=== PATIENT | male | born 1930 | race Caucasian/White ===

== ENCOUNTER 2016-09-17 20:57 | Emergency (ER) | payer MEDICARE, BC ==
--- NOTE | ~2016-09-17 | CT101 ---
[facility] A Service of [facility] RADIOLOGY TEXT RESULTS PATIENT: LUDWIG GARZON LOCATION: SED : 30 UNIT #: [id number] AGE: [address]: Catalina Keen APRN SEX: M ORDER DR: [id number] [address] [address] [id number] E MR#: [id number] Acc #: [id number] NAME: LUDWIG GARZON : 1930 SEX: M STUDY DATE/TIME: 09/17/2016 21:31 UNIT: SED ROOM: STUDY DESCRIPTION: CT Maxillofacial Area Wo Cont Attending Physician: Catalina Keen A.P.R.N. Ordering Physician: Catalina Keen A.P.R.N. Primary Care Physician: No Primary Care Physician MEDICAL IMAGING REPORT This report is preliminary unless electronic signature is present. EXAM Max face CT INDICATIONS Fall. Head laceration. Left orbital pain. Tripped on a rug. TECHNIQUE Maxillofacial CT without contrast. Coronal reconstructions were obtained. This CT exam was performed with one or more of the following radiation dose reduction techniques: automatic control, adjustment of mA and/or kV according to patient size, and iterative reconstruction. COMPARISON None available. FINDINGS There is a soft tissue laceration and small scalp hematoma over the left frontal convexity and left orbit. The left globe is normal in appearance. No post septal hematoma. No facial fractures. There is mucosal thickening within the left frontal sinus, anterior left ethmoid air cells, and the left maxillary sinus. There is poor dentition with multiple dental caries. IMPRESSION 1. Soft tissue laceration and small scalp hematoma overlying the left frontal convexity and left orbit. 2. No underlying fracture. The left globe is within normal limits. Dictated by... Blaine Sorenson M.D. [facility] A Service [facility] RADIOLOGY TEXT RESULTS PATIENT: LUDWIG GARZON LOCATION: SED : 30 UNIT #: [id number] AGE: [address]: Catalina Keen APRN SEX: M ORDER DR: THIS IS AN ELECTRONICALLY VERIFIED REPORT Blaine Sorenson M.D. at 09/18/2016 11:15 PM ROSANA/tashia TD: 09/18/2016 02:01 JOB #: [id number] MEDICAL IMAGING REPORT Page 1 of 1
--- NOTE | ~2016-09-17 | CR181 ---
[facility]. [facility] A Service of [facility] RADIOLOGY TEXT RESULTS PATIENT: LUDWIG GARZON LOCATION: SED : 30 UNIT #: [id number] AGE: [address]: Catalina Keen APRN SEX: M ORDER DR: [id number] [place] [id number] E MR#: [id number] Acc #: [id number] NAME: LUDWIG GARZON : 1930 SEX: M STUDY DATE/TIME: 09/17/2016 22:04 UNIT: SED ROOM: STUDY DESCRIPTION: CR Lumbar Spine 2 or 3 Views Attending Physician: Catalina Keen A.P.R.N. Ordering Physician: Catalina Keen A.P.R.N. Primary Care Physician: No Primary Care Physician MEDICAL IMAGING REPORT This report is preliminary unless electronic signature is present. EXAM Lumbar spine 3 views HISTORY Chronic back pain worse after tripping over rug at home today. FINDINGS AP lateral and cone lateral views of the lumbar spine demonstrates advanced multilevel degenerative disc disease lumbar spine with mild dextrocurvature. Degenerative disc changes most pronounced L3-4, L4-5 but involve all lumbar levels. No definite fracture. No spondylolysis or spondylolisthesis. Extensive aortic vascular calcifications noted. Visualized sacrum and SI joints unremarkable. IMPRESSION Advanced multilevel degenerative disc disease and multilevel facet arthropathy lumbar spine. No definite acute abnormality. Dictated by... Carly Polanco M.D. THIS IS AN ELECTRONICALLY VERIFIED REPORT Carly Polanco M.D. at 09/20/2016 6:07 AM ORLANDO/tashia TD: 09/18/2016 03:21 JOB #: [id number] MEDICAL IMAGING REPORT Page 1 of 1
--- NOTE | ~2016-09-17 | CR63 ---
[facility]. [facility] A Service of [facility] RADIOLOGY TEXT RESULTS PATIENT: LUDWIG GARZON LOCATION: SED : 30 UNIT #: [id number] AGE: [address]: Catalina Keen APRN SEX: M ORDER DR: [id number] [place] [id number] E MR#: [id number] Acc #: [id number] NAME: LUDWIG GARZON : 1930 SEX: M STUDY DATE/TIME: 09/17/2016 22:04 UNIT: SED ROOM: STUDY DESCRIPTION: CR Chest 2 View Attending Physician: Catalina Keen A.P.R.N. Ordering Physician: Catalina Keen A.P.R.N. Primary Care Physician: No Primary Care Physician MEDICAL IMAGING REPORT This report is preliminary unless electronic signature is present. EXAM 2-view chest HISTORY 86-year-old male status post fall today, tripped over rug at home hit head on couch complains of chest tightness. FINDINGS 2 views of the chest demonstrates cardiomegaly with prominence of the pulmonary vascular and interstitium with Francis B lines and bilateral pleural effusions. Findings suggestive of underlying CHF. Patient is post median sternotomy and apparent CABG. Osseous structures unremarkable. IMPRESSION Bilateral pleural effusions. Cardiomegaly and prominence of the pulmonary interstitium and vascularity may reflect underlying CHF, possibly chronic in nature. Patient is post CABG. Dictated by... Carly Polanco M.D. THIS IS AN ELECTRONICALLY VERIFIED REPORT Carly Polanco M.D. at 09/20/2016 6:07 AM ORLANDO/tashia TD: 09/18/2016 03:08 JOB #: [id number] MEDICAL IMAGING REPORT Page 1 of 1
--- NOTE | ~2016-09-17 | CT71 ---
[facility] A Service [facility] RADIOLOGY TEXT RESULTS PATIENT: LUDWIG GARZON LOCATION: SED : 30 UNIT #: [id number] AGE: [address]: Catalina Keen APRN SEX: M ORDER DR: [id number] [place] [id number] E MR#: [id number] Acc #: [id number] NAME: LUDWIG GARZON : 1930 SEX: M STUDY DATE/TIME: 09/17/2016 21:31 UNIT: SED ROOM: STUDY DESCRIPTION: CT Head Wo Contrast Attending Physician: Catalina Keen A.P.R.N. Ordering Physician: Catalina Keen A.P.R.N. Primary Care Physician: No Primary Care Physician MEDICAL IMAGING REPORT This report is preliminary unless electronic signature is present. EXAM CT head INDICATIONS Fall. Head laceration. Tripped over a rug at home. TECHNIQUE CT of the head without contrast. This CT exam was performed with one or more of the following radiation dose reduction techniques: automatic control, adjustment of mA and/or kV according to patient size, and iterative reconstruction. COMPARISON None available. FINDINGS There is no acute intracranial hemorrhage, mass lesion, or acute infarct. There is generalized global cerebral atrophy and chronic small vessel changes. The ventricles are mildly prominent, however this is felt to be commiserate with the degree of volume loss. No extraaxial collection. No acute osseous abnormalities. There is some mucosal thickening in the left frontal sinus and anterior left ethmoidal air cells. There is a laceration over the left eye. Please correlate with a maxillofacial CT for details. IMPRESSION 1. No acute intracranial findings. 2. Soft tissue laceration over the left orbit. Please refer to the maxillofacial CT report for details. 3. Atrophy and chronic small vessel changes [facility] A Service [facility] RADIOLOGY TEXT RESULTS PATIENT: LUDWIG GARZON LOCATION: SED : 30 UNIT #: [id number] AGE: [address]: Catalina Keen APRN SEX: M ORDER DR: Dictated by... Blaine Sorenson M.D. THIS IS AN ELECTRONICALLY VERIFIED REPORT Blaine Sorenson M.D. at 09/18/2016 11:15 PM RPC/rnr TD: 09/18/2016 01:57 JOB #: [id number] MEDICAL IMAGING REPORT Page 1 of 1
--- NOTE | ~2016-09-17 | CT52 ---
[facility] A Service of [facility] & [facility] RADIOLOGY TEXT RESULTS PATIENT: LUDWIG GARZON LOCATION: SED : 30 UNIT #: [id number] AGE: [address]: Catalina Keen APRN SEX: M ORDER DR: [id number] [address] [address] [id number] E MR#: [id number] Acc #: [id number] NAME: LUDWIG GARZON : 1930 SEX: M STUDY DATE/TIME: 09/17/2016 22:01 UNIT: SED ROOM: STUDY DESCRIPTION: CT Cervical Spine Wo Cont Attending Physician: Catalina Keen A.P.R.N. Ordering Physician: Catalina Keen A.P.R.N. Primary Care Physician: No Primary Care Physician MEDICAL IMAGING REPORT This report is preliminary unless electronic signature is present. EXAM CT cervical spine without contrast HISTORY 86-year-old male status post fall with head laceration, tripped over rug at home. Hit head on couch. TECHNIQUE This CT exam was performed with one or more of the following radiation dose reduction techniques: automatic control, adjustment of mA and/or kV according to patient size, and iterative reconstruction. FINDINGS Thin section axial images performed through the cervical spine with multiplanar reconstructed images reviewed at a workstation. Examination demonstrates no fracture or malalignment. Multilevel degenerative disc disease with disc space narrowing C3-4, C4-5, C5-6 and C6-7. Mild anterolisthesis C3 on C4 and C4 on C5. Mild multilevel facet arthropathy. Multilevel spinal and foraminal stenosis due to a combination of degenerative disc disease and facet arthropathy. This is most pronounced C5-6 and C6-7. Extensive atherosclerotic changes are noted within the carotid bifurcations, right greater than left. Moderate sized bilateral pleural effusions with evidence of probable underlying interstitial disease and fibrosis. IMPRESSION 1. No acute cervical spine abnormality identified. Moderately advanced multilevel degenerative disc disease and multilevel facet arthropathy. 2. 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 Moderately advanced arthritic changes are seen at the atlantoaxial joint. 3. Incidentally noted are moderate sized bilateral pleural effusions [facility]. [facility] A Service of [facility] & [facility] RADIOLOGY TEXT RESULTS PATIENT: LUDWIG GARZON LOCATION: SED : 30 UNIT #: [id number] AGE: [address]: Catalina Keen [employer] SEX: M ORDER DR: with interstitial prominence could reflect interstitial edema and CHF. Correlate with clinical exam. Dictated by... Carly Polanco M.D. THIS IS AN ELECTRONICALLY VERIFIED REPORT Carly Polanco M.D. at 09/20/2016 6:07 AM ORLANDO/tashia TD: 09/18/2016 02:13 JOB #: [id number] MEDICAL IMAGING REPORT Page 1 of 1
[2016-09-17] MEDS ORDERED: ZOCOR PO (21:12)
[2016-09-17] MEDS ORDERED: ATENOLOL PO (21:13)
[2016-09-17] MEDS ORDERED: PRILOSEC PO (21:13)
[2016-09-17] MEDS ORDERED: PLAVIX PO (21:13)
[2016-09-17] MEDS ORDERED: NITROSTAT0.4 MG (21:13)
[2016-09-17] MEDS ORDERED: AZOR 5-40 MG T1 EACH (21:13)
[2016-09-17] MEDS ORDERED: ASPIRIN81 MG (21:13)
[2016-09-17] MEDS ORDERED: HYTRIN PO (21:13)
[2016-09-17 21:52] LABS: URINE SOURCE CLEAN CATCH
[2016-09-17 21:54] LABS: URINE APPEARANCE CLEAR; URINE BILIRUBIN NEG (NEG); URINE BLOOD NEG (NEG); URINE COLOR YELLOW; URINE GLUCOSE NEG (NORM); URINE KETONE TRACE (NEG); URINE LEUKOCYTE ESTERASE NEG (NEG); URINE NITRATE NEG (NEG); URINE PH 5.5 (5-8); URINE PROTEIN 2+ (NEG)
[2016-09-17 21:56] LABS: BASOPHIL% 0.4 % (0-2.5); EOSINOPHIL# 0.2 X10e3 (0-0.7); EOSINOPHIL% 3.7 % (0.0-7.0); HEMATOCRIT 30.9 % (38.0-50.0); HEMOGLOBIN 10.4 gm/dL (13.0-16.0); LYMPHOCYTE# 1.1 X10e3 (1.0-3.5); LYMPHOCYTE% 23.6 % (17.0-45.0); MEAN CELL VOLUME 84.5 FL (83-96); MEAN CORPUSCULAR HEMOGLOBIN 28.4 PG (28-34); MEAN CORPUSCULAR HGB CONC 33.6 g/dL (30-36); MONOCYTE# 0.4 X10e3 (0-1.0); MONOCYTE% 7.8 % (3.0-12.0); NEUTROPHIL# 3.1 X10e3 (1.5-7.1); NEUTROPHIL% 64.5 % (40-75); PLATELET COUNT 163 X10e3 (140-420); RED BLOOD COUNT 3.65 X10e (3.90-5.60); RED CELL DISTRIBUTION WIDTH 15.1 % (11.0-15.5); WHITE BLOOD COUNT 4.8 X10e3 (4.0-10.5)
[2016-09-17 21:57] LABS: DIFF IND NO
[2016-09-17 22:02] LABS: CULTURE INDICATED? NO; MICRO INDICATED? YES; URINE BACTERIA NEG (NEG); URINE RBC 0-2 /[HPF] (0-2); URINE SQUAMOUS EPITHELIAL CELL OCCAS /[HPF]
[2016-09-17 22:03] LABS: URINE HYALINE CAST 0-2 /[HPF]; URINE MUCUS PRESENT
[2016-09-17 22:04] LABS: INR 1.3; PROTHROMBIN TIME (PATIENT) 14.6 SECONDS (9.5-12.4)
[2016-09-17 22:06] LABS: POC - CKMB <1.0 ng/mL (0.0-7.9); POC - TROPONIN <0.05 ng/mL (<=0.05)
[2016-09-17 22:11] LABS: ALBUMIN SERUM 3.7 g/dL (3.5-5.0); BILIRUBIN,TOTAL 0.4 mg/dL (0.2-2.0); BUN/CREATININE RATIO 14.21; CALCIUM SERUM 8.5 mg/dL (8.4-10.2); CREATININE SERUM 1.9 mg/dL (0.6-1.4); GLOM FILT RATE Estimated 31.2 mL/min (>60); PARTIAL THROMBOPLASTIN TIME 26.5 SECONDS (25.6-38.1); POTASSIUM 3.8 mmol/L (3.5-5.1); PROTEIN TOTAL SERUM 6.4 g/dL (6.0-8.3)
== END 2016-09-18 01:59 ==
LOC: SED 20:57
PROVIDERS: Nurse Practitioner Family
DX: S09.90XA Unspecified injury of head, initial encounter (principal); I25.2 Old myocardial infarction; Z88.1 Allergy status to other antibiotic agents; Z79.01 Long term (current) use of anticoagulants; W01.0XXA Fall on same level from slipping, tripping and stumbling without subsequent striking against object, initial encounter; Y92.830 Public park as the place of occurrence of the external cause
CPT/HCPCS: 36415; 70450; 70486; 71020; 72100; 72125; 80053; 81003; 82553; 83880; 84484; 85025; 85610; 85730; 96374; 99285; J1940

== ENCOUNTER 2016-11-30 18:54 | Inpatient (IN) | payer MEDICARE, BC ==
[~2016-11-30] VITALS: Ht 167.6 cm; Wt 69.0 kg
--- NOTE | ~2016-11-30 | CO ---
Unit #: [id number] #: [id number] Patient: LUDWIG GARZON [id number] [facility]. [place] [id number] [facility]. [place], [place] [address] [id number] I MR#: [id number] NAME: LUDWIG GARZON ROOM: 306 Age: 86 Sex: M Admission Date: 11/30/2016 : 1930 Attending Physician: Janis Messer M.D. Primary Care Physician: No Primary Care Physician Consultation Date: 12/01/2016 CONSULTATION REPORT REASON FOR CONSULTATION Cardiac management and cardiac clearance for surgery. HISTORY OF PRESENT ILLNESS This is an 86-year-old white male with history of coronary artery disease, had a previous CABG in 1997 and over 10 years ago had some type of angioplasty stent to according to the patient occluded graft. Details are unavailable. Also patient has a history of having appearance of valvular heart disease and aortic stenosis and congestive heart failure. He was just in [facility] under the care of Dr. Hdez early September of this year with congestive heart failure. Patient does not believe he has had any recent stress test but has had a recent echo. Patient has hypertension, hyperlipidemia. He has degenerative disease, chronic back pain. According to patient, he was walking across the room and he just his lost his balance and fell over toward his right side. He had a laceration on upper part of his right ear and he hurt his right hip. He couldn't get up from the floor. He lives with his . They called EMS who came to his home, transported him to the hospital for further evaluation and management. After x-rays he was found to have a right intertrochanteric fracture. CT of his maxillofacial and CT of the head did not show anything acute. CT of his head did show some extensive carotid calcification. Chest x-ray show cardiomegaly and COPD. His EKG shows sinus rhythm. Some nonspecific ST-T wave abnormalities. On interview with the patient he denies having chest pain, pain in his neck, bilateral jaw, shoulders, arms or elbow except for musculoskeletal pain from the fall. He denies any palpitations. He denies any dizziness, presyncope or syncope that precipitated the fall. He denies any increased lower extremity edema, recent increased lower extremity edema. Patient also states he used to see a kidney doctor but has not in some time and he does not know if his kidneys were an issue when he was in the hospital a couple of months ago. On admission his BUN was 25, creatinine 2.0. His creatinine was 2.0. His hemoglobin is 9.6, hematocrit 20.2. He said he used to take iron tablets, has not in some time. Cardiology has been asked to assist with evaluation, managed and cleared for surgery for repair of his hip fracture. PAST MEDICAL HISTORY 1. History of coronary artery disease, to vessel coronary artery bypass graft in 1993, his last cardiac cath was in 2011 showing an occluded saphenous vein graft to the RCA and moderate stenosis of the saphenous vein graft to the diagonal branch of the LAD and a patent RUIZ to the LAD. 2. He has a history of moderate aortic stenosis. He follows Dr. Hdez. His last 2D echo 08/[address] Hdez showed EF of 36% Unit #: [id number] #: [id number] Patient: LUDWIG GARZON to 40%. Left ventricular systolic function is moderately decreased with LVH, grade 3 diastolic dysfunction, moderate mitral valve regurgitation, and moderate aortic valve stenosis. 3. History of systolic congestive heart failure. 4. Hypertension. 5. Hyperlipidemia. 6. Gastroesophageal reflux disease. 7. Chronic kidney disease. 8. Benign prostatic hypertrophy. 9. Peripheral vascular disease, status post left carotid endarterectomy. 10. Chronic back pain, has degenerative disease. 11. History of anemia. 12. Reformed smoker. PAST SURGICAL HISTORY 1. Left carotid endarterectomy. 2. 1993 two vessel coronary artery bypass graft. 3. Cholecystectomy. HOME MEDICATIONS 1. Zocor 40 mg p.o. at h.s. 2. Prilosec 20 mg p.o. daily. 3. Hytrin 10 mg p.o. daily at h.s. 4. Plavix 75 mg p.o. daily. 5. Nitrostat 0.4 mg sublingual p.r.n. for chest pain. 6. Atenolol 50 mg p.o. daily. 7. Analgesic balm topically 3 times daily p.r.n. for pain. 8. Isosorbide mononitrate 120 mg p.o. daily. 9. Amlodipine 10 mg p.o. daily, that's a half a tablet which will be 5 mg. ALLERGIES Cephalexin. SOCIAL HISTORY The patient lives with his spouse. He sometimes has an unsteady gait due to his back pain. He refuses up to now to use a walker or cane. He quit smoking 50 years ago. No alcohol or illicit drug abuse. FAMILY HISTORY He had a daughter that at the age of 59 from some type of sudden illness. They are not sure if she has had an KS, autopsy is pending. He also had an older sister that had an KS. REVIEW OF SYSTEMS See details in HPI. PHYSICAL EXAMINATION GENERAL: Mr. Garzon is an 86-year-old white male in no acute respiratory distress. He is awake, alert and oriented. VITAL SIGNS: Blood pressure is 150/60, heart rate is 66, respirations 18, temperature 98.7, O2 sats 96% on room air. NECK: Trachea midline. No thyromegaly or lymphadenopathy. Normal bilateral carotid bruits greater in the right. LUNGS: Very diminished, otherwise clear. ABDOMEN: Soft, nontender. Positive bowel sounds present. No hepatosplenomegaly. EXTREMITIES: Pedal pulses are palpable. No pedal edema. Unit #: [id number] #: [id number] Patient: LUDWIG GARZON DIAGNOSTIC STUDIES LABORATORY DIAGNOSTIC DATA: Glucose is 125, BUN 25, creatinine 2.0. EGFR is 29.4. Sodium 141, potassium 4.5, chloride 108, CO2 27, calcium 3.4, total protein 6.5, albumin 3.7, bili total 0.5, AST 21, ALT 13, alk phos is 51. WBC is 8.1, hemoglobin 9.6, hematocrit 28.2, and platelets is 160. INR is 1.1. IMAGING STUDIES: Chest x-ray shows cardiomegaly and COPD, otherwise no active pulmonary disease. CT of the head, CT of the cervical spine, and CT of the maxillofacial area reveals no fractures but did note extensive carotid arterial calcification with prominent calcifications of the bilateral carotid bifurcations. X-ray of right hip shows comminuted intertrochanteric fracture of the right hip. CARDIOLOGY STUDIES: EKG shows normal sinus rhythm, left ventricular hypertrophy. Q waves in inferior leads, also in V1, poor R wave progression. IMPRESSION 1. Status post fall right intertrochanteric fracture. 2. Moderate aortic stenosis. LVEF of 35% to 40%. 3. Angina pectoris stable. 4. Chronic kidney disease and acute on chronic kidney disease. 5. History of coronary artery disease, two vessel CABG in 1993, last cardiac catheterization was 2011, which showed an occluded saphenous vein graft to the RCA, moderate stenosis of the saphenous vein graft to the diagonal branch of the LAD and a patent RUIZ to the LAD. 6. History of chronic systolic congestive heart failure. 7. Hypertension. 8. Hyperlipidemia. 9. Gastroesophageal reflux disease. 10. Benign prostatic hypertrophy. 11. Peripheral vascular disease. 12. Carotid stenosis. 13. History of left carotid endarterectomy. 14. Chronic back pain. 15. History of anemia. 16. Reformed smoker. PLAN 1. Cardiology consulted to evaluate the patient and clear for surgery, to have his hip fracture repair. On exam, today there is no signs or symptoms of angina or acute congestive heart failure. However, the patient does have occasional what appears to be angina symptoms and he takes a sublingual nitroglycerin, then it eases off. Did obtain records from Dr. Hdez, his laundry housekeeper at [facility] and he did make notation of his blockages in his coronary arteries and patient wanted conservative medical management at that time. Dr. Hdez has continued to monitor his aortic stenosis. 2. Patient will continue on his beta-calvin perioperatively but will change the atenolol to metoprolol 25 mg p.o. twice daily. 3. Last dose of his Plavix was on 11/30/2016 in the morning. 4. Continue his amlodipine for blood pressure management, besides his beta-calvin. Also continue patient on his nitrate. Patient has IV Unit #: [id number] #: [id number] Patient: LUDWIG GARZON delfino for his acute on chronic kidney disease. He got D5 1/2 at 70 mL an hour. 5. After Dr. Eng reviewed patient's records and after examination feels it is permissible for the patient to undergo surgery at a moderate acceptable risk. Dr. Eng had a long discussion with the patient and his daughter and discussed these risks. The patient verbalizes understanding and wants to proceed with hip surgery. 6. Further recommendations pending per Dr. Eng. 7. Has SCDs for now. Thank you very much for allowing us to assist in his care. Dictated by... Lucy E. Ndiaye, A.P.Alissa Mariscal/ts TD: 12/02/2016 06:49 JOB #: [id number] CC: [facility] [place] Hdez M.D. CONSULTATION REPORT Page 1 of 1 X Lucy Ndiaye APRN CONSULTATION REPORT
--- NOTE | ~2016-11-30 | EKG ---
PATIENT: LUDWIG GARZON UNIT #: [id number] Ventricular Rate: 68 BPM Atrial Rate: 70 BPM QRS Duration: 104 ms Q-T Interval: 416 ms QTC Calculation(Bezet): 442 ms Calculated R [place]: 55 degrees Calculated T [place]: -29 degrees Diagnosis Line: Normal sinus rhythm Diagnosis Line: Left ventricular hypertrophy with repolarization Diagnosis Line: abnormality Diagnosis Line: Abnormal ECG Diagnosis Line: No previous ECGs available Diagnosis Line: Confirmed by FRANCES RAMIREZ MD ([id number]) on 12/01/2016 Diagnosis Line: 7:39:45 PM INTERPRETING MD: ASHLEY HYDE
--- NOTE | ~2016-11-30 | CT52 ---
[facility] A Service of [facility] RADIOLOGY TEXT RESULTS PATIENT: LUDWIG GARZON LOCATION: [facility] 449-01 : 30 UNIT #: [id number] AGE: [address]: Janis Messer MD SEX: M ORDER DR: [id number] [facility] [address] [place], [place] [address] [id number] MR#: [id number] #: [id number] NAME: LUDWIG GARZON : 1930 SEX: M STUDY DATE/TIME: 11/30/2016 21:18 UNIT: CEDOF ROOM: 93514 STUDY DESCRIPTION: CT Cervical Spine Wo Cont Attending Physician: Meera Del Cid M.D. Ordering Physician: Lisa Martínez M.D. Primary Care Physician: Primary Care Physician No MEDICAL IMAGING REPORT This report is preliminary unless electronic signature is present EXAM CT cervical spine, 11/30/2016 HISTORY Patient fall today prior to arrival, ANGELIQUE right side head, face, posterior neck pain. TECHNIQUE This CT exam was performed with one or more of the following radiation dose reduction techniques: automatic exposure control, adjustment of mA and/or kV according to patient size, and iterative reconstruction. FINDINGS CT cervical spine performed. Bone and soft tissue windows reviewed. Comparison 09/17/2016. Visualized portions of brain unremarkable. The visualized paranasal sinuses and mastoid air cells are clear. Nasopharyngeal, oropharyngeal, pharyngeal mucosal soft tissues show no acute abnormality. Larynx, subglottic airway, lung apices show small bilateral pleural effusions. Less than on prior examination. Mild interlobular septal thickening lung apices. Correlate with any clinical concern for mild interstitial edema. Dependent atelectasis. No dense airspace disease. The vascular structures show extensive carotid arterial calcification, particularly prominent at the right carotid bifurcation. There is no adenopathy. Alignment of the cervical spine in frontal projection shows mild and stable dextroscoliosis. Congenital nonunion anterior arch C1. No change. 2 mm anterolisthesis of C3 of C4 and 3 mm anterolisthesis C7 on T1. Stable and felt secondary to disc and facet degenerative changes. Degenerative changes at the atlantoaxial joint. Relatively prominent STS. [facility] A Service of [facility] RADIOLOGY TEXT RESULTS PATIENT: LUDWIG GARZON LOCATION: [place] [address] : 30 UNIT #: [id number] AGE: [address]: Janis Messer MD SEX: M ORDER DR: reed polo. There is some resulting narrowing of the spinal canal at the level of the odontoid process. Stable. There is no evidence of cord compression. C2-C3: Posterior disc bulge. Mild spinal canal narrowing. No cord contact. Left greater than right uncovertebral and facet degenerative change. Moderate to marked left foraminal narrowing. C3-C4: Anterolisthesis as noted. Posterior disc osteophyte complex. Mild to mild/moderate central spinal canal narrowing with anterior cord contact and effacement of anterior cord contour. Facet and uncovertebral degenerative changes left greater than right. Moderate left and mild right foraminal narrowing. No change. C4-C5: Posterior disc osteophyte complex. Mild central spinal canal narrowing. There is probably anterior cord contact with effacement of the anterior cord contour. Uncovertebral and facet degenerative changes with left greater than right foraminal narrowing. Exiting nerve irritation or xin impingement is a consideration bilaterally, particularly on the left. C5-C6: Posterior concentric disc osteophyte complex. Mild central spinal canal narrowing. Mild narrowing bilateral lateral recesses. Uncovertebral and facet degenerative change. Bilateral moderate to marked foraminal narrowing. Exiting nerve irritation or xin impingement is a consideration bilaterally. C6-C7: Posterior concentric disc osteophyte complex. Mild to mild/moderate central spinal canal narrowing with probable anterior cord contact and effacement of anterior cord contour. Uncovertebral and facet degenerative changes. Moderate foraminal narrowing bilaterally. C7-T1: Anterolisthesis as noted. Only mild spinal canal narrowing. Mild bilateral foraminal narrowing. T1-T2, T2-T3, T3-T4: No significant disc bulge or herniation. Spinal canal diameter within normal limits. The neural foramina are patent without evidence of exiting nerve impingement. Vertebral body heights normal overall. Severe narrowing intervertebral disc levels C3-C4 through C7-T1. No traumatic paraspinal soft tissue abnormality. IMPRESSION 1. There is no evidence of traumatic fracture or malalignment in the cervical spine. No overall change in appearance compared to August 2016. 2. Degenerative anterolisthesis C3 on C4 by about 2 mm and C7 on T1 by about 3 mm. Stable, felt secondary to disc and facet degenerative changes. 3. Congenital nonunion anterior arch C1. Prominent arthropathic changes STS. [facility] A Service of [facility] RADIOLOGY TEXT RESULTS PATIENT: LUDWIG GARZON LOCATION: [facility]- : 30 UNIT #: [id number] AGE: [address]: Janis Messer MD SEX: M ORDER DR: at the atlantoaxial joint with prominent pannus along the posterior aspect of the odontoid process. Stable. There is narrowing of the spinal canal at this level as a result, but there is no cord contact or compression. 4. Multilevel disc osteophyte complexes with multilevel [id number] central spinal canal narrowing, multilevel cord contact with multilevel anterior cord effacement. All of these changes are stable compared to prior study. Multilevel neural foraminal narrowing generally more pronounced on the left than right, also stable. See details in body of report above. 5. Prominent carotid bifurcation calcifications particularly on the right. Correlate clinically. If it would assist in management, consider carotid ultrasound for further assessment. This should be performed on an elective basis. 6. Small bilateral pleural effusions, less pronounced than in August. Mild interlobular septal thickening bilateral lung apices. Also less pronounced than on prior study. This could reflect chronic interstitial change or very mild interstitial edema. Correlate clinically. Dictated by... Idnio Cuba M.D. THIS IS AN ELECTRONICALLY VERIFIED REPORT Indio Cuba M.D. at 12/02/2016 1:22 PM Miguelito TD: 11/30/2016 23:30 JOB #: [id number] MEDICAL IMAGING REPORT Page 1 of 1 COPY
--- NOTE | ~2016-11-30 | CT71 ---
[facility] A Service of [facility] RADIOLOGY TEXT RESULTS PATIENT: LUDWIG GARZON LOCATION: [facility] 306-01 : 30 UNIT #: [id number] AGE: [address]: Janis Messer MD SEX: M ORDER DR: [id number] [facility] [address] [place], [place] [address] [id number] E MR#: [id number] Acc #: [id number] NAME: LUDWIG GARZON : 1930 SEX: M STUDY DATE/TIME: 11/30/2016 21:08 UNIT: [facility] ROOM: STUDY DESCRIPTION: CT Head Wo Contrast Attending Physician: Lisa Martínez M.D. Ordering Physician: Lisa Martínez M.D. Primary Care Physician: No Primary Care Physician MEDICAL IMAGING REPORT This report is preliminary unless electronic signature is present EXAMINATION Noncontrast CT head. DATE 11/30/2016 HISTORY Fell today prior to arrival. Pain on the right side of the head, face and posterior neck pain. History of kidney disease, cardiac disease, hypertension. COMPARISON Noncontrast CT head, 09/17/2016. TECHNIQUE This CT exam was performed with one or more of the following radiation dose reduction techniques: automatic exposure control, adjustment of mA and/or kV according to patient size, and iterative reconstruction. FINDINGS There is mild right frontoparietal scalp soft tissue swelling. No acute displaced calvarial fracture is seen. Mastoid air cells are clear. There is moderate bilateral ethmoid mucosal thickening. Mild left maxillary sinus mucosal thickening. Degenerative changes at the occipital-cervical junction. Dense intracranial carotid artery calcifications are present. No acute intracranial hemorrhage, mass lesion, mass effect or midline shift is seen. There is generalized parenchymal atrophy and features of chronic microvascular disease, but there is no convincing CT evidence of acute or evolving infarct at this time. No mass lesion, mass effect or midline shift. IMPRESSION [facility] A Service of [facility] RADIOLOGY TEXT RESULTS PATIENT: LUDWIG GARZON LOCATION: [facility] 306-01 : 30 UNIT #: [id number] AGE: [address]: Janis Messer MD SEX: M ORDER DR: 1. Right frontal parietal scalp soft tissue swelling. 2. No acute intracranial findings. 3. Generalized parenchymal atrophy and mild chronic microvascular disease changes. 4. Ethmoid sinusitis. Dictated by... Chaparrita Booker M.D. THIS IS AN ELECTRONICALLY VERIFIED REPORT Chaparrita Booker M.D. at 12/01/2016 9:56 PM CROW/quique TD: 11/30/2016 22:37 JOB #: [id number] MEDICAL IMAGING REPORT Page 1 of 1 COPY
--- NOTE | ~2016-11-30 | DS ---
Unit #: [id number] #: [id number] Patient: LUDWIG GARZON [id number] [address] [address] [id number] I MR#: [id number] NAME: LUDWIG GARZON ROOM: 449 Age: 86 Sex: M Admission Date: 11/30/2016 : 1930 Discharge Date: 12/03/2016 Attending Physician: Janis Messer M.D. Primary Care Physician: No Primary Care Physician DISCHARGE SUMMARY PRINCIPAL DIAGNOSES 1. Right comminuted intertrochanteric hip fracture, status post intramedullary gamma nail placement. 2. Severe coronary artery disease with recurrent stable angina. 3. 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 4. Acute postop blood loss anemia with hemoglobin of 7.7: The patient will be transfused blood cells due to his significant coronary artery disease. 5. Right ear laceration, status post repair. 6. Chronic systolic congestive heart failure with ejection fraction of 35% to 40%: No acute exacerbation. 7. Moderate aortic stenosis. 8. Osteoporosis. 9. Mild thrombocytopenia. 10. Hematuria, likely secondary to traumatic Carpenter catheter placement. 11. Hypertension. 12. Hyperlipidemia. 13. Gastroesophageal reflux disease. 14. Peripheral vascular disease, status post left carotid endarterectomy. CONSULTANTS 1. Dr. Pitt - Orthopedic Surgery. 2. Dr. Ely - Cardiology. PROCEDURES 1. Right hip intramedullary nailing on December 02, 2016. This occurred without complication. 2. CT of the maxillofacial area without contrast on November 30, 2016, with no facial bone fracture. Mucosal thickening in the bilateral frontal ethmoid maxillary sinuses are noted. Dentition is significantly poor. Degenerative changes of the cervical spine noted. 3. X-ray of right hip on November 30, 2016, with a comminuted intertrochanteric fracture of the right hip with associated varus deformity. 4. Chest x-ray on November 30, 2016, with cardiomegaly and changes of COPD. No other acute findings. 5. CT of the head without contrast on November 30, 2016, with right frontoparietal scalp soft tissue swelling, generalized parenchymal atrophy and mild chronic microvascular disease changes noted. Ethmoid sinusitis noted. 6. CT of cervical spine without contrast on November 30, 2016, with no evidence of traumatic fracture or malalignment in the cervical spine. Degenerative changes are noted in multiple levels. [facility] carotid Unit #: [id number] #: [id number] Patient: LUDWIG GARZON bifurcation calcifications primarily on the right. Small bilateral pleural effusions. CLINICAL HISTORY/HOSPITAL COURSE Mr. Garzon is a really nice 86-year-old male who presents to the emergency department with right hip pain after a fall at home. X-rays revealed comminuted right intertrochanteric hip fracture and patient was subsequently admitted. Orthopedics was consulted and patient's Plavix was discontinued. Given patient's significant cardiac history, cardiology was also consulted for cardiac evaluation preoperatively. Postoperatively, from patient's intramedullary nailing, he has done well. He has had a mild drop in hemoglobin down to 7.7 and he appears to be stabilizing but, as noted above, he has severe coronary artery disease and, thus, I am going to transfuse one unit of packed red blood cells to try to get a hemoglobin a little bit closer to 10. The patient also has some chronic kidney disease but this has remained at his baseline. I will place him back on his diuretics given his congestive heart failure and chronic kidney disease to hopefully avoid any pulmonary edema. The patient is also on chronic Plavix therapy which I think can be reinitiated but we will have to monitor his blood counts very closely on an antiplatelet agent. At the same time, he is on Lovenox. The patient is also somewhat hard of hearing but has no memory loss, fortunately, and I think will do very well at rehab. DISCHARGE CONDITION Stable. DISCHARGE STATUS Discharge to rehab. DISCHARGE MEDICATIONS 1. Lovenox 40 mg subcutaneously every 24 hours, to stop after dose is given on December 16, 2016. 2. Atenolol 25 mg b.i.d. 3. Bisacodyl 5 mg p.o. b.i.d. p.r.n. for constipation. 4. Senokot-S, one tablet b.i.d. 5. Zocor 40 mg at bedtime. 6. Hytrin 10 mg at bedtime. 7. [place] 5/325, one to two tablets p.o. q.4 hours p.r.n. for pain. 8. Plavix 75 mg daily. 9. Prilosec 20 mg daily. 10. Imdur ER 60 mg daily. Please note - this can be titrated up in the future as blood pressure tolerates back to his 120 mg daily. 11. Nitroglycerin 0.4 mg sublingual q.5 minutes p.r.n. for chest pain. 12. Calcium citrate plus vitamin D 600 mg, one b.i.d. 13. Lasix 20 mg b.i.d. DISCHARGE INSTRUCTIONS Patient was instructed to follow a heart healthy diet. He can increase activity as tolerated. He is weight bearing as tolerated on the right lower extremity. FOLLOWUP Unit #: [id number] #: [id number] Patient: LUDWIG GARZON Patient will follow up with Dr. Pitt in two weeks. 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 Hdez, upon discharge from rehab. Time spent on discharge today - 34 minutes. Dictated by... Janis Messer M.D. MICHELET/lynn TD: 12/03/2016 09:22 JOB #: [id number] DISCHARGE SUMMARY Page 1 of 1 X Janis Messer MD DISCHARGE SUMMARY
--- NOTE | ~2016-11-30 | HP ---
Unit #: [id number] #: [id number] Patient: LUDWIG GARZON [id number] [address] [address] [id number] I MR#: [id number] NAME: LUDWIG GARZON ROOM: 306 Age: 86 Sex: M Admission Date: 11/30/2016 : 1930 Attending Physician: Meera Del Cid M.D. Primary Care Physician: No Primary Care Physician HISTORY AND PHYSICAL CHIEF COMPLAINT Right hip fracture. HISTORY This janelle 86-year-old male with CAD, valvular heart disease, hypertension, and BPH, is admitted following a right hip fracture. Patient fell late this afternoon. EMS was called and the patient was unable to get up due to right hip pain. He was brought to this emergency department where x-rays demonstrate a comminuted right intertrochanteric hip fracture with varus deformity. Patient also had a laceration of the tip of his right ear, which was repaired in the ER. He states that he has a history of CAD, status post CABG and PTCA. Was last admitted to [facility] two to three months ago for congestive heart failure. PAST MEDICAL HISTORY 1. CAD, status post what sounds to be two vessel CABG in 1993. Patient required PTCA. Does have a history of valvular heart disease. Followed by Dr. Ky Hdez. Was recently admitted to [facility] for congestive heart failure. 2. Hyperlipidemia. 3. GERD. 4. Hypertension. 5. BPH. 6. Anemia. 7. Chronic kidney disease. 8. Peripheral vascular disease, status post left carotid endarterectomy. 9. Cholecystectomy. 10. Cataract extraction. ALLERGIES Unknown reaction. HOME MEDICATIONS Uncertain. FAMILY HISTORY Positive CAD. SOCIAL HISTORY The patient lives with his . He stopped smoking 50 years ago, does not drink alcohol. REVIEW OF SYSTEMS Unit #: [id number] #: [id number] Patient: LUDWIG GARZON Notable for right hip pain following fall, CAD, congestive heart failure, hyperlipidemia, GERD, hypertension, BPH, peripheral vascular disease and above mentioned surgeries. All other systems were reviewed and are negative. PHYSICAL EXAMINATION GENERAL: Janelle 86-year-old male who currently is in no acute distress. VITAL SIGNS: Temperature 98.1, pulse 73, respirations 16, blood pressure 149/67, O2 saturation is 97% on room air. HEENT: Eyes - PERRLA, extraocular muscles are intact. Pharynx is benign. NECK: Supple without adenopathy or thyromegaly. Left CEA scar noted. CHEST: Clear. CARDIAC: Normal S1 and S2 with a loud systolic murmur best heard at the upper sternal border. It has been at the apex. ABDOMEN: Bowel sounds are present. No hepatosplenomegaly, tenderness or masses. EXTREMITIES: Without edema. Pedal pulses are markedly diminished but no ulcers on the feet. Right leg is foreshortened and externally rotated. NEUROLOGIC: Patient is awake, alert and oriented. His cranial nerves are intact except that he is hard of hearing. He is able to move all of his extremities. DIAGNOSTIC STUDIES LABS: Hematocrit is 29.3, down from 30.9 in August. Normal white count, platelet count and MCV. [facility] 12 - BUN 27, creatinine 2.1, up from a BUN of 27, creatinine 1.9 in August. IMAGING STUDIES: Chest x-ray - cardiomegaly and COPD. CT of the head - soft tissue swelling on the right, small vessel ischemia disease, atrophy, sinusitis. Plain x-rays of the hip show an intertrochanteric hip fracture with varus deformity. CARDIOLOGY STUDIES: EKG - sinus rhythm, rate 68 with mild T wave changes/inversions noted inferiorly and laterally. LVH. ASSESSMENT 1. Fall with right hip fracture and laceration right ear, which was repaired. 2. CAD, valvular heart disease, history of congestive heart failure with recent admission to [facility]. Patient is status post CABG and PTCA. 3. Chronic kidney disease. 4. BPH. 5. Chronic normocytic anemia. 6. Essential hypertension. 7. GERD. 8. Peripheral vascular disease, status post left carotid endarterectomy. PLANS 1. Obtain urinalysis. 2. Need names and doses of home medicines. Will contact the [facility]. 3. Request records from [facility]. 4. Gentle IV fluids and supportive treatment. 5. Cardiology and orthopedic surgeon to consult in the morning. Unit #: [id number] #: [id number] Patient: LUDWIG GARZON 6. Recheck labs in the morning. Obtain type and screen and coags. 7. CT of the C-spine and face are pending. Dictated by Alissa Rice/josé TD: 12/01/2016 04:54 JOB #: [id number] HISTORY AND PHYSICAL Page 1 of 1 X Meera Del Cid MD HISTORY AND PHYSICAL
--- NOTE | ~2016-11-30 | CO ---
Unit #: [id number] #: [id number] Patient: LUDWIG GARZON [id number] [address] [address] [id number] I MR#: [id number] NAME: LUDWIG GARZON ROOM: 449 Age: 86 Sex: M Admission Date: 11/30/2016 : 1930 Attending Physician: Janis Messer M.D. Primary Care Physician: Primary Care Physician No Consultation Date: 12/01/2016 CONSULTATION REPORT REASON FOR CONSULTATION Right hip fracture. HISTORY OF PRESENT ILLNESS Mr. Garzon is an 86-year-old male, who presents today with a right hip fracture. The patient fell on 11/30/2016. He was at home lost his balance and landed on the right hip. He admits to pain at the right groin, radiating down to the mid femur. He is unable to weight bear at this time. PAST MEDICAL HISTORY Significant for; 1. Coronary artery disease. 2. Hyperlipidemia. 3. GERD. 4. Hypertension. 5. BPH. 6. Anemia. 7. Kidney disease. 8. Peripheral vascular disease. 9. Cataracts. MEDICATIONS Currently being reconciled. ALLERGIES No known drug allergies. PAST SURGICAL HISTORY Significant for cataract extraction, cholecystectomy, left carotid endarterectomy. FAMILY HISTORY Insignificant. SOCIAL HISTORY The patient lives at home with his . He is a former smoker and quit about 50 years ago. He denies any alcohol use. REVIEW OF SYSTEMS Ten-organ systems reviewed. The patient denies any blurry vision, congestion, sore throat, shortness of breath, chest pain, abdominal pain, urinary incontinence, numbness, tingling, skin ulcers, lesions, anxiety, Unit #: [id number] #: [id number] Patient: LUDWIG GARZON depression. Positive for joint pain. PHYSICAL EXAMINATION GENERAL: No acute distress. Alert and oriented x3. VITAL SIGNS: Temperature 98.1, pulse 73, respirations 16, and blood pressure 149/67. HEENT: PERRLA. Nonicteric sclerae. THORAX: Trachea midline. No thyromegaly. CARDIAC: S1 and S2. No extra sounds or murmurs. LUNGS: Clear to auscultation. No rales or rhonchi. ABDOMEN: Nondistended and nontender. Positive bowel sounds. : Deferred. MUSCULOSKELETAL: No erythema or ecchymosis. 2+ dorsalis pedis bilateral pulses. NEUROLOGIC: II through XII intact. SKIN: Cool and dry. PSYCHIATRIC: Good insight and good judgment. Mood and affect are pleasant. DIAGNOSTIC STUDIES X-rays on admission, two views of the right hip ordered and reviewed and shows a displaced right intertrochanteric hip fracture. ASSESSMENT Right hip fracture. PLAN I have discussed treatment options with the patient and the patient's family who is in the room. I have recommended a right hip Gamma nail to be done, pending medical and cardiac clearance. Risks and benefits of the procedure were explained as well as the description of procedure in its entirety along with any complications. The patient has decided to proceed. We will go ahead and get this scheduled, get the usual preoperative lab work and testing complete and have the patient medically cleared for surgery. Dictated by... Yana Keita for Ricky Perez M.D. CONOR/jori TD: 12/01/2016 10:27 JOB #: [id number] CONSULTATION REPORT Page 1 of 1 X Charo Juan CONSULTATION REPORT
--- NOTE | ~2016-11-30 | CT101 ---
[facility] A Service of [facility] RADIOLOGY TEXT RESULTS PATIENT: LUDWIG GARZON LOCATION: [facility] 449-01 : 30 UNIT #: [id number] AGE: [address]: Janis Messer MD SEX: M ORDER DR: [id number] [facility] [address] [place], [place] [address] [id number] I MR#: [id number] [facility] #: [id number] NAME: LUDWIG GARZON : 1930 SEX: M STUDY DATE/TIME: 11/30/2016 19:34 UNIT: CEDOF ROOM: [id number] STUDY DESCRIPTION: CT Maxillofacial Area Wo Cont Attending Physician: Meera Del Cid M.D. Ordering Physician: Lisa Martínez M.D. Primary Care Physician: No Primary Care Physician MEDICAL IMAGING REPORT This report is preliminary unless electronic signature is present EXAM Maxillofacial area CT without contrast. DATE 11/30/2016 HISTORY Trauma. Status post fall today prior to arrival, ANGELIQUE/right side face posterior neck pain. TECHNIQUE This CT exam was performed with one or more of the following radiation dose reduction techniques: automatic exposure control, adjustment of mA and/or kV according to patient size, and iterative reconstruction. FINDINGS CT facial bones performed. Bone and soft tissue windows reviewed. Visualized portions of the brain are unremarkable. The intraorbital soft tissues are unremarkable. The visualized nasopharyngeal, oropharyngeal, pharyngeal mucosal, retropharyngeal spaces remarkable. The facial soft tissues show no soft tissue defect, subcutaneous air or radiodense foreign body. Streak artifact from dental hardware. There are prominent carotid arterial calcifications. No adenopathy. Mucosal thickening in the frontal ethmoid, maxillary sinuses bilaterally. No air-fluid levels to clearly indicate acute sinusitis. The nasopharyngeal, oropharyngeal, pharyngeal mucosal, retropharyngeal spaces show no acute abnormality. No adenopathy. There are small subcentimeter cervical lymph nodes seen. The carotid arteries show prominent carotid arterial calcifications. Superficial soft tissues of the face show no soft tissue defect, subcutaneous air or radiodense foreign body. Streak artifact from dental hardware. Visualized bones of calvaria intact nasal bones intact. Nasal septum deviates to the right ostiomeatal complexes patent. Bony structures of the orbits intact. The intra orbital soft tissues are STS. [facility] A Service of [facility] RADIOLOGY TEXT RESULTS PATIENT: LUDWIG GARZON LOCATION: [facility] 449-01 : 30 UNIT #: [id number] AGE: [address]: Janis Messer MD SEX: M ORDER DR: unremarkable. Streak artifact from dental hardware. Zygomas, zygomatic arches, pterygoid plates maxillary sinus casas intact. Mandible intact. Patient is missing multiple teeth. Partial absence of left upper fourth, fifth and sixth teeth. Lucency adjacent to the roots of these partially absent teeth. Findings concerning for severe dental caries and periodontal disease. Lucencies in the right posteriormost upper molar concerning for dental caries. Congenital nonunion anterior arch of C1. Degenerative changes in the visualized cervical spine. Please see dedicated CT cervical spine for full discussion. IMPRESSION 1. No facial bone fracture. 2. There is no clearly acute superficial facial soft tissue traumatic abnormality. Correlate with exam. 3. Mucosal thickening in the bilateral frontal, ethmoid, maxillary sinuses without air-fluid levels to suggest acute sinusitis. 4. Poor dentition. Multifocal partially missing and completely missing teeth. Please see discussion in body of report and correlate with dental examination. Multifocal areas of concern for severe dental caries. Possible periodontal disease as well. 5. Extensive carotid arterial calcification with prominent calcifications of the bilateral carotid bifurcations. Correlate clinically. Consider assessment with elective carotid ultrasound for further evaluation. 6. Degenerative changes in the cervical spine. See dedicated cervical spine CT for further assessment. Dictated by... Indio Cuba M.D. THIS IS AN ELECTRONICALLY VERIFIED REPORT Indio Cuba M.D. at 12/02/2016 1:22 PM CAROL/quique TD: 12/01/2016 00:23 JOB #: [id number] MEDICAL IMAGING REPORT Page 1 of 1 COPY
--- NOTE | ~2016-11-30 | CR151 ---
[facility] A Service of [facility] RADIOLOGY TEXT RESULTS PATIENT: LUDWIG GARZON LOCATION: A 306-01 : 30 UNIT #: [id number] AGE: [address]: Meera Del Cid MD SEX: M ORDER DR: [id number] [facility] [address] [place], [place] [address] [id number] P MR#: [id number] Acc #: [id number] NAME: LUDWIG GARZON : 1930 SEX: M STUDY DATE/TIME: 11/30/2016 19:46 UNIT: [facility] ROOM: STUDY DESCRIPTION: CR Hip Min 2 Views Rt Attending Physician: Lisa Martínez M.D. Ordering Physician: Lisa Martínez M.D. Primary Care Physician: No Primary Care Physician MEDICAL IMAGING REPORT This report is preliminary unless electronic signature is present EXAM Right hip, 3 views; 11/30/2016. HISTORY Right hip pain status post fall today. FINDINGS Three views of the right hip demonstrate comminuted intertrochanteric fracture of the right hip with resulting varus deformity. No other fracture or dislocation is seen. The bones are osteopenic. There is no soft tissue abnormality. IMPRESSION Comminuted intertrochanteric fracture of the right hip with resulting varus deformity. Osteopenia. Dictated by... Jay Hilario M.D. THIS IS AN ELECTRONICALLY VERIFIED REPORT Jay Hilario M.D. at 12/01/2016 7:37 AM ANDREW/quique TD: 11/30/2016 21:26 JOB #: [id number] MEDICAL IMAGING REPORT Page 1 of 1 COPY
--- NOTE | ~2016-11-30 | EKG ---
PATIENT: LUDWIG GARZON UNIT #: [id number] Ventricular Rate: 92 BPM Atrial Rate: 92 BPM QRS Duration: 106 ms Q-T Interval: 374 ms QTC Calculation(Bezet): 462 ms Calculated R [place]: 51 degrees Calculated T [place]: -115 degrees Diagnosis Line: Sinus tachycardia Diagnosis Line: Possible Inferior infarct , age undetermined Diagnosis Line: Left ventricular hypertrophy Diagnosis Line: Abnormal ECG Diagnosis Line: When compared with ECG of 30-NOV-2016 19:53, Diagnosis Line: No significant change was found Diagnosis Line: Confirmed by FRANCES RAMIREZ MD ([id number]) on 12/04/2016 Diagnosis Line: 8:29:11 AM INTERPRETING MD: ASHLEY HYDE
--- NOTE | ~2016-11-30 | OR ---
Unit #: [id number] #: [id number] Patient: LUDWIG GARZON [id number] [address] [place], [place] [address] [id number] I MR#: [id number] NAME: LUDWIG GARZON ROOM: 449 Date of Procedure: 12/02/2016 Admission Date: 11/30/2016 Surgeon: Tai Pitt M.D. : 1930 Attending Physician: Janis Messer M.D. Primary Care Physician: Primary Care Physician No OPERATIVE REPORT PREOPERATIVE DIAGNOSIS Right intertrochanteric hip fracture. POSTOPERATIVE DIAGNOSIS Right intertrochanteric hip fracture. PROCEDURE PERFORMED Right hip cephalomedullary nail with Andrei Natural Nail. SWATCH FOLDER None. ANESTHESIA General with LMA. COMPLICATIONS None. SPECIMENS None. DRAINS None. SURGICAL IMPLANTS Andrei short nail, 10 mm diameter with 105 mm lag screw, 125 degree neck shaft angle. INDICATIONS FOR PROCEDURE Mr. Garzon is an 86-year-old male, who had fallen landing on his right hip resulting in an intertrochanteric hip fracture. The patient was seen in the emergency room, where x-rays were taken. He was cleared for surgical intervention. It was felt he would benefit from a cephalomedullary nail. Risks, benefits, and alternatives of surgery were discussed with the patient and family. Informed consent was obtained. Risks include, but not limited to, infection, bleeding, nerve injury, blood clots, risks associated with anesthesia, need for further surgery, and possibly . DESCRIPTION OF PROCEDURE On 12/02/2016, the patient was seen in the preoperative holding area, where surgical site was marked. Preoperative antibiotics were received. H and P and consent updated. He was taken to the operating room and Unit #: [id number] #: [id number] Patient: LUDWIG GARZON provided general anesthesia. He was moved to the fracture table. Right leg was placed in traction. Fluoroscopy confirmed appropriate reduction. The hip was then prepped and draped in typical sterile fashion. Time-out was performed confirming the correct surgical site and procedure. A longitudinal incision was made just proximal to greater trochanter directly lateral. Incision was taken down through the skin and subcutaneous tissues and fascia. A starting awl was placed on the tip of the trochanter and inserted into the femur. A long ball-tipped guidewire was passed down the canal of femur. A starting reamer was passed over this. The nail was then assembled and inserted into the femur. We felt that a 10 mm nail was appropriate. It was taken down to the appropriate depth. A counter incision was made for the lag screw. Guide placed down the bone. Checked on both AP and lateral planes. A drill tip guidewire was passed into the center-center position of the femoral head on AP and lateral planes. It was subsequently reamed and the screw was placed. Compression was placed across this. Set screw was placed and backed off 1/4 turn. Next, distal bicortical locking screw was placed. The screw was initially attempted to be placed through the jig, but there was difficulty with the drill tip passing through the nail. At this point, the jig was removed perfect circles technique was used. The distal locking screw was placed through the oblong hole dynamic position. Once this was complete, final AP and lateral images were taken confirming appropriate reduction of fracture and placement of hardware. Wound was thoroughly irrigated. Tissue was closed with 2-0 Vicryl suture followed by keisha. Xeroform, 4x4s, ABD pad, and tape were placed. The patient was subsequently awakened from general anesthesia in stable condition and taken to the PACU postoperatively. POSTOPERATIVE PLAN The patient returns to hospital room. He will be weightbearing as tolerated in the right lower extremity with therapy. He will have SCDs. He will be on 24-hour antibiotic protocol. He will be on Lovenox for 2 weeks for DVT prophylaxis. No complications encountered during the surgical procedure. Dictated by... Alissa Griffin/jori TD: 12/02/2016 15:31 JOB #: [id number] OPERATIVE REPORT Page 1 of 1 X X PROCEDURE OPERATIVE NOTE
--- NOTE | ~2016-11-30 | CR72 ---
[facility] A Service of [facility] & [facility] RADIOLOGY TEXT RESULTS PATIENT: LUDWIG GARZON LOCATION: [facility] 306-01 : 30 UNIT #: [id number] AGE: [address]: Meera Del Cid MD SEX: M ORDER DR: [id number] [facility] [address] [place], [place] [address] [id number] P MR#: [id number] Acc #: [id number] NAME: LUDWIG GARZON : 1930 SEX: M STUDY DATE/TIME: 11/30/2016 19:53 UNIT: [facility] ROOM: STUDY DESCRIPTION: CR Chest Single View Portable Attending Physician: Lisa Martínez M.D. Ordering Physician: Lisa Martínez M.D. Primary Care Physician: Primary Care Physician No MEDICAL IMAGING REPORT This report is preliminary unless electronic signature is present EXAM Portable chest, 11/30/2016 HISTORY Shortness of breath on exertion today status post fall. Right hip fracture, preop clearance. FINDINGS There is mild cardiac enlargement status post median sternotomy. The lungs are hyperinflated with emphysematous and fibrotic changes characteristic of COPD. Old healed right rib fractures are noted. No airspace consolidation is seen. There are no pleural effusions. IMPRESSION Cardiomegaly and COPD. No active pulmonary disease. Dictated by... Jay Hilario M.D. THIS IS AN ELECTRONICALLY VERIFIED REPORT Jay Hilario M.D. at 12/01/2016 7:37 AM ANDREW/kyaw TD: 11/30/2016 21:14 JOB #: [id number] MEDICAL IMAGING REPORT Page 1 of 1 COPY
--- NOTE | ~2016-11-30 | DS ---
Unit #: [id number] #: [id number] Patient: LUDWIG GARZON [id number] [address] [address] [id number] I MR#: [id number] NAME: LUDWIG GARZON ROOM: 449 Age: 86 Sex: M Admission Date: 11/30/2016 : 1930 Discharge Date: Attending Physician: Janis Messer M.D. Primary Care Physician: Primary Care Physician No DISCHARGE SUMMARY REVISED REPORT SEE ADDENDUM PRINCIPAL DIAGNOSES 1. Right comminuted intertrochanteric hip fracture, status post intramedullary gamma nail placement. 2. Severe coronary artery disease with recurrent stable angina. 3. 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 4. Acute postop blood loss anemia with hemoglobin of 7.7: The patient will be transfused blood cells due to his significant coronary artery disease. 5. Right ear laceration, status post repair. 6. Chronic systolic congestive heart failure with ejection fraction of 35% to 40%: No acute exacerbation. 7. Moderate aortic stenosis. 8. Osteoporosis. 9. Mild thrombocytopenia. 10. Hematuria, likely secondary to traumatic Carpenter catheter placement. 11. Hypertension. 12. Hyperlipidemia. 13. Gastroesophageal reflux disease. 14. Peripheral vascular disease, status post left carotid endarterectomy. CONSULTANTS 1. Dr. Pitt - Orthopedic Surgery. 2. Dr. Ely - Cardiology. PROCEDURES 1. Right hip intramedullary nailing on December 02, 2016. This occurred without complication. 2. CT of the maxillofacial area without contrast on November 30, 2016, with no facial bone fracture. Mucosal thickening in the bilateral frontal ethmoid maxillary sinuses are noted. Dentition is significantly poor. Degenerative changes of the cervical spine noted. 3. X-ray of right hip on November 30, 2016, with a comminuted intertrochanteric fracture of the right hip with associated varus deformity. 4. Chest x-ray on November 30, 2016, with cardiomegaly and changes of COPD. No other acute findings. 5. CT of the head without contrast on November 30, 2016, with right frontoparietal scalp soft tissue swelling, generalized parenchymal atrophy and mild chronic microvascular disease changes noted. Unit #: [id number] #: [id number] Patient: LUDWIG GARZON Ethmoid sinusitis noted. 6. CT of cervical spine without contrast on November 30, 2016, with no evidence of traumatic fracture or malalignment in the cervical spine. Degenerative changes are noted in multiple levels. Prominent carotid bifurcation calcifications primarily on the right. Small bilateral pleural effusions. CLINICAL HISTORY/HOSPITAL COURSE Mr. Garzon is a really nice 86-year-old male who presents to the emergency department with right hip pain after a fall at home. X-rays revealed comminuted right intertrochanteric hip fracture and patient was subsequently admitted. Orthopedics was consulted and patient's Plavix was discontinued. Given patient's significant cardiac history, cardiology was also consulted for cardiac evaluation preoperatively. Postoperatively, from patient's intramedullary nailing, he has done well. He has had a mild drop in hemoglobin down to 7.7 and he appears to be stabilizing but, as noted above, he has severe coronary artery disease and, thus, I am going to transfuse one unit of packed red blood cells to try to get a hemoglobin a little bit closer to 10. The patient also has some chronic kidney disease but this has remained at his baseline. I will place him back on his diuretics given his congestive heart failure and chronic kidney disease to hopefully avoid any pulmonary edema. The patient is also on chronic Plavix therapy which I think can be reinitiated but we will have to monitor his blood counts very closely on an antiplatelet agent. At the same time, he is on Lovenox. The patient is also somewhat hard of hearing but has no memory loss, fortunately, and I think will do very well at rehab. DISCHARGE CONDITION Stable. DISCHARGE STATUS Discharge to rehab. DISCHARGE MEDICATIONS 1. Lovenox 40 mg subcutaneously every 24 hours, to stop after dose is given on December 16, 2016. 2. Atenolol 25 mg b.i.d. 3. Bisacodyl 5 mg p.o. b.i.d. p.r.n. for constipation. 4. Senokot-S, one tablet b.i.d. 5. Zocor 40 mg at bedtime. 6. Hytrin 10 mg at bedtime. 7. Redfield 5/325, one to two tablets p.o. q.4 hours p.r.n. for pain. 8. Plavix 75 mg daily. 9. Prilosec 20 mg daily. 10. Imdur ER 60 mg daily. Please note - this can be titrated up in the future as blood pressure tolerates back to his 120 mg daily. 11. Nitroglycerin 0.4 mg sublingual q.5 minutes p.r.n. for chest pain. 12. Calcium citrate plus vitamin D 600 mg, one b.i.d. 13. Lasix 20 mg b.i.d. DISCHARGE INSTRUCTIONS Patient was instructed to follow a heart healthy diet. He can increase Unit #: [id number] #: [id number] Patient: LUDWIG GARZON activity as tolerated. He is weight bearing as tolerated on the right lower extremity. FOLLOWUP Patient will follow up with Dr. Pitt in two weeks. Patient can follow up with his primary rolling attendant, Dr. Hdez, upon discharge from rehab. Time spent on discharge today - 34 minutes. Dictated by... Alissa Mclaughlin/lynn TD: 12/03/2016 09:22 JOB #: [id number] ADDENDUM Please note, the patient was seen by Cardiology prior to discharge and they have made some adjustments in his discharge medications. Imdur has been discontinued and Atenolol has been dropped to 25 mg p.o. daily. Dictated by... Alissa Mclaughlin/conor TD: 12/03/2016 15:11 JOB #: [id number] CC: Nuzhat/quinton Please Delete DISCHARGE SUMMARY Page 1 of 1 X Janis Messer MD X DISCHARGE SUMMARY
--- NOTE | ~2016-11-30 | CR151 ---
[facility] A Service of [facility] & [facility] RADIOLOGY TEXT RESULTS PATIENT: LUDWIG GARZON LOCATION: B On license of [facility]-01 : 30 UNIT #: [id number] AGE: [address]: Janis Messer MD SEX: M ORDER DR: [id number] [facility] [address] [place], [place] [address] [id number] I MR#: [id number] Acc #: [id number] NAME: LUDWIG GARZON : 1930 SEX: M STUDY DATE/TIME: 12/02/2016 8:41 UNIT: [facility] ROOM: On license of [facility] STUDY DESCRIPTION: CR Hip Min 2 Views Rt Attending Physician: Janis Messer M.D. Ordering Physician: Tai Pitt M.D. Primary Care Physician: No Primary Care Physician MEDICAL IMAGING REPORT This report is preliminary unless electronic signature is present EXAM Right hip, 4 intraoperative spot views, 12/02/2016. HISTORY Femoral neck fracture and hip replacement. FINDINGS 4 spot views are obtained during surgical procedure performed by Dr. Pitt. Dictated by... Sulaiman Maxwell M.D. THIS IS AN ELECTRONICALLY VERIFIED REPORT Sulaiman Maxwell M.D. at 12/07/2016 5:21 PM REGAN/nazario TD: 12/02/2016 12:14 JOB #: [id number] MEDICAL IMAGING REPORT Page 1 of 1 COPY
[~2016-11-30 18:54] MED LIST: ASPIRIN81 MG; ATENOLOL PO; AZOR 5-40 MG T1 EACH; HYTRIN PO; NITROSTAT0.4 MG; PLAVIX PO; PRILOSEC PO; ZOCOR PO
[2016-11-30 21:02] LABS: BASOPHIL% 0.2 % (0-2.5); EOSINOPHIL# 0.2 X10e3 (0-0.7); EOSINOPHIL% 3.9 % (0.0-7.0); HEMATOCRIT 29.3 % (38.0-50.0); HEMOGLOBIN 10.2 gm/dL (13.0-16.0); LYMPHOCYTE# 1.1 X10e3 (1.0-3.5); LYMPHOCYTE% 17.3 % (17.0-45.0); MEAN CELL VOLUME 84.9 FL (83-96); MEAN CORPUSCULAR HEMOGLOBIN 29.4 PG (28-34); MEAN CORPUSCULAR HGB CONC 34.6 g/dL (30-36); MEAN PLATELET VOLUME 8.6 FL (6.5-11.5); MONOCYTE# 0.4 X10e3 (0-1.0); MONOCYTE% 6.8 % (3.0-12.0); NEUTROPHIL# 4.4 X10e3 (1.5-7.1); NEUTROPHIL% 71.8 % (40-75); PLATELET COUNT 167 X10e3 (140-420); RED BLOOD COUNT 3.45 X10e (3.90-5.60); RED CELL DISTRIBUTION WIDTH 14.5 % (11.0-15.5); WHITE BLOOD COUNT 6.1 X10e3 (4.0-10.5)
[2016-11-30 21:04] LABS: DIFF IND NO
[2016-11-30 21:30] LABS: ALBUMIN SERUM 3.7 g/dL (3.5-5.0); BILIRUBIN, DIRECT 0.1 mg/dL (0.0-0.2); BILIRUBIN,INDIRECT 0.4 mg/dL (0.0-0.9); BILIRUBIN,TOTAL 0.5 mg/dL (0.2-2.0); BUN/CREATININE RATIO 12.85; CALCIUM SERUM 8.4 mg/dL (8.4-10.2); CREATININE SERUM 2.1 mg/dL (0.6-1.4); GLOM FILT RATE Estimated 27.7 mL/min (>60); POTASSIUM 4.2 mmol/L (3.5-5.1); PROTEIN TOTAL SERUM 6.5 g/dL (6.0-8.3)
[2016-11-30 23:12] LABS: URINE SOURCE CLEAN CATCH
[2016-11-30 23:23] LABS: URINE APPEARANCE CLEAR; URINE BILIRUBIN NEG (NEG); URINE BLOOD TRACE (NEG); URINE COLOR YELLOW; URINE GLUCOSE NEG (NEG); URINE KETONE NEG (NEG); URINE LEUKOCYTE ESTERASE NEG (NEG); URINE NITRATE NEG (NEG); URINE PH 7.5 (5-8); URINE PROTEIN NEG (NEG); URINE SPECIFIC GRAVITY 1.013 (1.003-1.035)
[2016-11-30 23:27] LABS: U HYALINE CASTS AUWI 0-2 /[LPF]; URINE BACTERIA AUWI NEG (NEGATIVE); URINE SQUAMOUS EPITHELIAL CELL NONE SEEN /[HPF]; UWBCS1 AUWI 0-2 (0-5)
[2016-11-30 23:30] LABS: CULTURE INDICATED? NO
[2016-12-01 03:56] LABS: BASOPHIL% 0.3 % (0-2.5); EOSINOPHIL# 0.2 X10e3 (0-0.7); EOSINOPHIL% 2.6 % (0.0-7.0); HEMATOCRIT 28.2 % (38.0-50.0); HEMOGLOBIN 9.6 gm/dL (13.0-16.0); LYMPHOCYTE# 1.3 X10e3 (1.0-3.5); MEAN CELL VOLUME 85.1 FL (83-96); MEAN CORPUSCULAR HGB CONC 34.1 g/dL (30-36); MEAN PLATELET VOLUME 8.8 FL (6.5-11.5); MONOCYTE# 0.9 X10e3 (0-1.0); MONOCYTE% 10.8 % (3.0-12.0); NEUTROPHIL# 5.7 X10e3 (1.5-7.1); NEUTROPHIL% 70.3 % (40-75); PLATELET COUNT 160 X10e3 (140-420); RED BLOOD COUNT 3.31 X10e (3.90-5.60); RED CELL DISTRIBUTION WIDTH 14.4 % (11.0-15.5); WHITE BLOOD COUNT 8.1 X10e3 (4.0-10.5)
[2016-12-01 03:58] LABS: DIFF IND NO
[2016-12-01 04:08] LABS: INR 1.1; PARTIAL THROMBOPLASTIN TIME 24.4 SECONDS (23.5-31.3); PROTHROMBIN TIME (PATIENT) 11.7 SECONDS (10.0-11.7)
[2016-12-01 04:19] LABS: BUN/CREATININE RATIO 12.5; CALCIUM SERUM 8.4 mg/dL (8.4-10.2); GLOM FILT RATE Estimated 29.4 mL/min (>60); POTASSIUM 4.5 mmol/L (3.5-5.1)
[2016-12-01] MEDS ORDERED: ANALGESIC BALM TOP (10:06)
[2016-12-01] MEDS ORDERED: ISOSORBIDE MON120 M1 PO (10:08)
[2016-12-01] MEDS ORDERED: AMLODIPINE BESY10 MG PO (10:09)
[2016-12-02 05:23] LABS: HEMATOCRIT 23.9 % (38.0-50.0); MEAN CELL VOLUME 85.6 FL (83-96); MEAN CORPUSCULAR HEMOGLOBIN 28.6 PG (28-34); MEAN CORPUSCULAR HGB CONC 33.4 g/dL (30-36); MEAN PLATELET VOLUME 9.4 FL (6.5-11.5); RED BLOOD COUNT 2.79 X10e (3.90-5.60); RED CELL DISTRIBUTION WIDTH 13.9 % (11.0-15.5); WHITE BLOOD COUNT 6.2 X10e3 (4.0-10.5)
[2016-12-02 05:59] LABS: BUN/CREATININE RATIO 12.63; CALCIUM SERUM 7.8 mg/dL (8.4-10.2); CREATININE SERUM 1.9 mg/dL (0.6-1.4); GLOM FILT RATE Estimated 31.2 mL/min (>60); POTASSIUM 4.4 mmol/L (3.5-5.1)
[2016-12-03 03:20] LABS: BASOPHIL% 0.1 % (0-2.5); EOSINOPHIL% 0.3 % (0.0-7.0); HEMATOCRIT 22.7 % (38.0-50.0); HEMOGLOBIN 7.7 gm/dL (13.0-16.0); LYMPHOCYTE# 0.8 X10e3 (1.0-3.5); LYMPHOCYTE% 11.2 % (17.0-45.0); MEAN CELL VOLUME 85.3 FL (83-96); MEAN CORPUSCULAR HEMOGLOBIN 29.1 PG (28-34); MEAN CORPUSCULAR HGB CONC 34.1 g/dL (30-36); MEAN PLATELET VOLUME 9.1 FL (6.5-11.5); MONOCYTE# 0.8 X10e3 (0-1.0); MONOCYTE% 11.7 % (3.0-12.0); NEUTROPHIL# 5.4 X10e3 (1.5-7.1); NEUTROPHIL% 76.7 % (40-75); PLATELET COUNT 113 X10e3 (140-420); RED BLOOD COUNT 2.66 X10e (3.90-5.60); RED CELL DISTRIBUTION WIDTH 13.9 % (11.0-15.5)
[2016-12-03 03:21] LABS: DIFF IND YES
[2016-12-03 03:40] LABS: INR 1.1
[2016-12-03 03:46] LABS: PLATELET ESTIMATE NORMAL (NORMAL)
[2016-12-03 03:47] LABS: ANISOCYTOSIS SL; OVALOCYTES PRESENT
[2016-12-03 03:57] LABS: BUN/CREATININE RATIO 11.9; CALCIUM SERUM 7.6 mg/dL (8.4-10.2); CREATININE SERUM 2.1 mg/dL (0.6-1.4); GLOM FILT RATE Estimated 27.7 mL/min (>60); POTASSIUM 4.5 mmol/L (3.5-5.1)
== END 2016-12-03 17:13 | DRG 481 ==
LOC: CED 18:54 → CEDOF 22:42 → CED 22:42 → C3A PCU 22:42 → CEDOF 22:55 → C3A PCU 12-01 00:51 → CEDOF 12-01 00:51 → C3A PCU 12-01 00:51 → C4B 12-02 10:27
PROVIDERS: Emergency Medicine; Internal Medicine; Internal Medicine Cardiovascular Disease; Orthopaedic Surgery
PROC: 09Q0XZZ Repair Right External Ear, External Approach (ICD-10-PCS; 2016-11-30)
PROC: 0HQ2XZZ Repair Right Ear Skin, External Approach (ICD-10-PCS; 2016-11-30)
PROC: 0QS636Z Reposition Right Upper Femur with Intramedullary Internal Fixation Device, Percutaneous Approach (ICD-10-PCS; principal; 2016-12-02 07:30)
PROC: 30233N1 Transfusion of Nonautologous Red Blood Cells into Peripheral Vein, Percutaneous Approach (ICD-10-PCS; 2016-12-03)
DX: S72.141A Displaced intertrochanteric fracture of right femur, initial encounter for closed fracture (principal); D62 Acute posthemorrhagic anemia; N18.4 Chronic kidney disease, stage 4 (severe); D69.6 Thrombocytopenia, unspecified; I13.0 Hypertensive heart and chronic kidney disease with heart failure and stage 1 through stage 4 chronic kidney disease, or unspecified chronic kidney disease; I50.22 Chronic systolic (congestive) heart failure; I35.0 Nonrheumatic aortic (valve) stenosis; T83.83XA Hemorrhage due to genitourinary prosthetic devices, implants and grafts, initial encounter; Z95.1 Presence of aortocoronary bypass graft; W19.XXXA Unspecified fall, initial encounter; Y92.009 Unspecified place in unspecified non-institutional (private) residence as the place of occurrence of the external cause; I25.118 Atherosclerotic heart disease of native coronary artery with other forms of angina pectoris; S01.311A Laceration without foreign body of right ear, initial encounter; E78.5 Hyperlipidemia, unspecified; K21.9 Gastro-esophageal reflux disease without esophagitis; H91.90 Unspecified hearing loss, unspecified ear; N40.0 Benign prostatic hyperplasia without lower urinary tract symptoms; Y73.1 Therapeutic (nonsurgical) and rehabilitative gastroenterology and urology devices associated with adverse incidents; M81.0 Age-related osteoporosis without current pathological fracture; Z95.5 Presence of coronary angioplasty implant and graft; Z98.49 Cataract extraction status, unspecified eye; Z90.49 Acquired absence of other specified parts of digestive tract; Z82.49 Family history of ischemic heart disease and other diseases of the circulatory system; G89.29 Other chronic pain; M54.9 Dorsalgia, unspecified; Z87.891 Personal history of nicotine dependence; Z88.1 Allergy status to other antibiotic agents
CPT/HCPCS: 51702; 70450; 70486; 71010; 72125; 73502; 76001; 80048; 80076; 81003; 85025; 85027; 85610; 85730; 86850; 86900; 86901; 86923; 93005; 94760; 96374; 96376; 97110; 97161; 97166; 97530; 97535; 99285; G8978-GP; G8979-GP; G8987-GO; G8988-GO; J1650; J2270; J2405; J3010; J3370; P9016